=== PATIENT | female | born 1980 | race Caucasian/White ===

== ENCOUNTER 2019-09-25 09:20 | Emergency (ER) | payer OTHER ==
[~2019-09-25] VITALS: Ht 154.9 cm; Wt 63.6 kg
[~2019-09-25 09:20] MED LIST: CLEO300C2 PO; MOBI4TAB PO; NEUR300C PO; TRAM50TA2 PO; TYLE325T5 PO
[2019-09-25] MEDS ORDERED: OMEG1CAP4 PO (09:30)
[2019-09-25] MEDS ORDERED: LIDO5OIN19 TOP (09:30)
[2019-09-25] MEDS ORDERED: ONDANSETRON 4MG/2ML VIAL (J2405) IV ONE (10:00)
[2019-09-25] MEDS ORDERED: NS 1,000 ML IV ONE (10:00)
[2019-09-25] MEDS ORDERED: MORPHINE 2 MG/ML 1ML VIAL (J2270) IV ONE (10:00)
[2019-09-25 10:42] LABS: APPEARANCE, URINE CLEAR (CLEAR); BACTERIA, URINE AUTO NEGATIVE (NEGATIVE); BILIRUBIN, URINE AUTO NEGATIVE (NEGATIVE); BLOOD, URINE BLOOD NEGATIVE (NEGATIVE); COLOR, URINE YELLOW (YELLOW); GLUCOSE, URINE (UA) AUTO NEGATIVE (NEGATIVE); KETONE, URINE AUTO NEGATIVE (NEGATIVE); LEUKOCYTE ESTERASE, URINE AUTO NEGATIVE (NEGATIVE); MUCUS, URINE SMALL (NEGATIVE); NITRITE, URINE AUTO NEGATIVE (NEGATIVE); PROTEIN, URINE AUTO NEGATIVE (NEGATIVE); RBC, URINE AUTO 8 /HPF (0-3); SPECIFIC GRAVITY URINE AUTO 1.016 (1.002-1.035); SQUAMOUS EPITHELIAL CELL UR AU 4 /HPF (0-6); UROBILINOGEN, URINE AUTO 0.2 mg/dL (0.0-2.0); WBC, URINE AUTO 1 /HPF (0-3)
[2019-09-25 10:46] LABS: BASO # 0.1 10^3/uL (0.0-0.2); BASO % 0.4 % (0.0-1.0); EOS % 0.1 % (0.0-3.0); HEMATOCRIT 42.9 % (36.0-47.0); HEMOGLOBIN 13.9 g/dl (12.0-15.5); LYMPH # 2.5 10^3/uL (1.5-5.0); MEAN CORPUSCULAR HGB CONC 32.4 g/dl (32.0-36.5); MEAN CORPUSCULAR VOLUME 92.7 fl (80.0-96.0); MONO # 0.6 10^3/uL (0.0-0.8); MONO % 4.5 % (0.0-5.0); NEUTROPHILS # 9.9 10^3/uL (1.5-8.5); NEUTROPHILS % 75.6 % (36.0-66.0); PLATELET COUNT, AUTOMATED 279 10^3/uL (150-450); RED BLOOD COUNT 4.63 10^6/uL (4.00-5.40); WHITE BLOOD COUNT 13.1 10^3/uL (4.0-10.0)
[2019-09-25 11:00] LABS: HCG, SERUM QUALITATIVE NEGATIVE (NEGATIVE)
[2019-09-25 11:04] LABS: ALBUMIN 3.9 GM/DL (3.2-5.2); ALT/SGPT 38 U/L (12-78); BILIRUBIN,DIRECT 0.2 MG/DL (0.0-0.2); BILIRUBIN,TOTAL 0.4 MG/DL (0.2-1.0); BLOOD UREA NITROGEN 13 MG/DL (7-18); CARBON DIOXIDE LEVEL 27 MEQ/L (21-32); CHLORIDE LEVEL 102 MEQ/L (98-107); CREATININE FOR GFR 0.64 MG/DL (0.55-1.30); GLOMERULAR FILTRATION RATE > 60.0 (>60); GLUCOSE, FASTING 111 MG/DL (70-100); LIPASE 75 U/L (73-393); POTASSIUM SERUM 3.9 MEQ/L (3.5-5.1); SODIUM LEVEL 136 MEQ/L (136-145); TOTAL PROTEIN 7.4 GM/DL (6.4-8.2)
[2019-09-25 11:05] LABS: INFLUENZA A AMPLIFICATION NEGATIVE (NEGATIVE); INFLUENZA B AMPLIFICATION NEGATIVE (NEGATIVE)
[2019-09-25] MEDS ORDERED: ISOVUE-370 76% 100ML VIAL (Q9967) As Ordered ONE (11:12)
--- NOTE | 2019-09-25 12:15 | REP ---
CT ABDOMEN AND PELVIS WITH IV CONTRAST: TECHNIQUE: Axial contrast enhanced images from the lung bases to the pubic symphysis using 100 mL Isovue 370 intravenous contrast material with multiplanar reformations. Visualized lung bases are clear. There is a cyst in the anterior lobe of the liver measuring about 1.2 cm in diameter. Spleen, adrenals, pancreas and kidneys are unremarkable. There is no hydronephrosis. There is no abdominal aortic aneurysm. There is no adenopathy. There is no free air or free fluid. There is no bowel thickening. The appendix is normal. Urinary bladder is mildly distended and grossly unremarkable. There appears to be an enhancing fibroid of the uterus in the region of the fundus 1.7 cm in diameter. There is a right ovarian mass containing a large amount of fat and a small calcification along the wall consistent with a dermoid, maximum diameter 5.6 cm. There appears to be a cystic structure of the left ovary approximately 4.6 cm in diameter. IMPRESSION: The appendix is normal. No free air or free fluid. 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 Left ovarian cyst 4.6 cm in diameter. Electronically Signed by Fredrick No MD 09/29/2019 03:29 P
--- NOTE | 2019-09-25 15:05 | REP ---
PELVIC ULTRASOUND: Real-time sonographic evaluation of the pelvis performed utilizing transabdominal and endovaginal technique. Bladder measures 8.1 x 8.6 x 4.9 cm. Uterus measures 9.7 x 4.5 x 4.5 cm. Endometrial thickness is 7 mm. Uterine fibroids are visualized, the largest measures 2.3 cm in diameter in the region of the fundus. Right ovary measures 6.1 x 4.4 x 5.2 cm and contains a heterogeneous cystic mass containing echogenic fat. This is consistent with a dermoid cyst. It measures 4.9 x 5.1 x 3.3 cm. Simple cyst left ovary measures 4.2 x 4.0 x 3.2 cm. There is no torsion of either ovary with duplex Doppler evaluation. There is trace free fluid. IMPRESSION: Fibroid uterus. Right ovarian dermoid 5.1 cm in maximum diameter. Simple cyst left ovary 4.2 cm in maximum diameter. Trace free fluid. No torsion. Electronically Signed by Fredrick No MD 09/29/2019 04:04 P
[2019-09-25] MEDS ORDERED: ONDA4TAB6 PO (15:35)
[2019-09-25 15:45] VITALS: BP 123/87
== END 2019-09-25 15:49 | disposition home or self-care (01) ==
LOC: M ED 09:20
DX: N83.202 Unspecified ovarian cyst, left side (principal); N83.201 Unspecified ovarian cyst, right side; G89.29 Other chronic pain; M54.9 Dorsalgia, unspecified; F17.200 Nicotine dependence, unspecified, uncomplicated; Z79.899 Other long term (current) drug therapy; Z88.2 Allergy status to sulfonamides; Z91.011 Allergy to milk products
CPT/HCPCS: 74177; 76830; 76856; 80048; 80076; 81001; 83690; 84703; 85025; 87502; 93976; 96361; 96374; 99284; J2270; J2405; Q9967

== ENCOUNTER → 2019-12-12 | Outpatient (CLI) | payer OTHER ==
[~2019-12-12] MED LIST changes: +GNP650TA8 PO; +LIDO5OIN19 TOP; +OMEG1CAP4 PO; +ONDA4TAB6 PO; +ORTH1TAB8 PO; +ZANA2CAP PO
== END ==
LOC: M LABSMTC 08:01
PROVIDERS: ATTEND Anesthesiology
DX: Z01.818 Encounter for other preprocedural examination (principal); Z11.59 Encounter for screening for other viral diseases

== ENCOUNTER 2019-12-15 07:50 | Day surgery (SDC) | payer OTHER ==
[~2019-12-15] VITALS: Ht 154.9 cm; Wt 70.3 kg
[~2019-12-15 07:50] MED LIST changes: +ACETAMINOPHEN 650 MG SUPP PR ONE; +LR 1,000 ML IV ONE
[2019-12-15] MEDS ORDERED: propofoL 200 MG/20 ML VIAL As Ordered ONE (08:18)
[2019-12-15] MEDS ORDERED: ROCURONIUM BROMIDE 50 MG/5 ML VIAL As Ordered ONE (08:18)
[2019-12-15] MEDS ORDERED: LIDOCAINE 2% 100MG/5ML SDV (FOR ANES.) As Ordered ONE (08:18)
[2019-12-15] MEDS ORDERED: dexameTHASONE 4 MG/ML 1ML VIAL (J1100 PER 1MG) As Ordered ONE (08:18)
[2019-12-15] MEDS ORDERED: ONDANSETRON 4MG/2ML VIAL As Ordered ONE (08:18)
[2019-12-15] MEDS ORDERED: fentaNYL 250 MCG/5 ML INJECTION (J3010) As Ordered ONE (08:21)
[2019-12-15] MEDS ORDERED: MIDAZOLAM INJ 2MG/2ML VIAL (J2250 PER 1MG) As Ordered ONE (08:22)
[2019-12-15 08:25] LABS: HEMATOCRIT 41.5 % (36.0-47.0); HEMOGLOBIN 13.5 g/dl (12.0-15.5); MEAN CORPUSCULAR HEMOGLOBIN 29.9 pg (27.0-33.0); MEAN CORPUSCULAR HGB CONC 32.5 g/dl (32.0-36.5); MEAN CORPUSCULAR VOLUME 91.8 fl (80.0-96.0); PLATELET COUNT, AUTOMATED 272 10^3/uL (150-450); RED BLOOD COUNT 4.52 10^6/uL (4.00-5.40); WHITE BLOOD COUNT 10.2 10^3/uL (4.0-10.0)
[2019-12-15 08:51] LABS: BLOOD UREA NITROGEN 15 MG/DL (7-18); CALCIUM LEVEL 9.6 MG/DL (8.5-10.1); CARBON DIOXIDE LEVEL 30 MEQ/L (21-32); CHLORIDE LEVEL 103 MEQ/L (98-107); CREATININE FOR GFR 0.78 MG/DL (0.55-1.30); GLOMERULAR FILTRATION RATE > 60.0 (>58); GLUCOSE, FASTING 100 MG/DL (70-100); HCG, SERUM QUANTITATIVE < 1.0 MIU/ML; POTASSIUM SERUM 4.9 MEQ/L (3.5-5.1); SODIUM LEVEL 139 MEQ/L (136-145)
[2019-12-15] MEDS ORDERED: ACETAMINOPHEN 650 MG SUPP As Ordered ONE (10:24)
[2019-12-15] MEDS ORDERED: METHYLENE BLUE 0.5% (5MG/ML) 10 ML AMP (PROVAYBLUE)(Q9968 PER 1MG) As Ordered ONE (10:24)
[2019-12-15] MEDS ORDERED: BUPIVACAINE HCL 0.5% 10ML VIAL As Ordered ONE (10:24)
[2019-12-15] MEDS ORDERED: ACETAMINOPHEN 1000MG 100ML IV BTL (OFIRMEV) (J0131 PER 10MG) As Ordered ONE (11:41)
[2019-12-15] MEDS ORDERED: SUGAMMADEX SODIUM 500 MG/5 ML VIAL (BRIDION) As Ordered ONE (11:43)
[2019-12-15] MEDS ORDERED: KETOROLAC 60 MG/2 ML VIAL As Ordered ONE (11:43)
[2019-12-15] MEDS: oxyCODONE 5MG TAB PO PRN ×2 (12:08→12:38)
[2019-12-15] MEDS ORDERED: oxyCODONE 5MG TAB As Ordered ONE (12:08)
[2019-12-15] MEDS ORDERED: HYDROMORPHONE HCL 0.5 MG/ 0.5 ML SYRINGE (J1170 PER 1) IV PRN (12:15)
[2019-12-15] MEDS ORDERED: ONDANSETRON 4MG/2ML VIAL IV PRN (12:15)
[2019-12-15] MEDS ORDERED: LR 1,000 ML IV SCH (12:15)
[2019-12-15] MEDS: fentaNYL 100 MCG/2 ML INJECTION (J3010) IV PRN ×2 (12:32→12:37)
[2019-12-15 14:05] VITALS: BP 155/83
[2019-12-15] MEDS ORDERED: KETOROLAC 30 MG/ML 1ML VIAL IV SCH (18:00)
== END 2019-12-15 14:15 | disposition home or self-care (01) ==
LOC: M SDC 07:50
PROVIDERS: ATTEND Obstetrics & Gynecology
DX: Z30.2 Encounter for sterilization (principal); D27.0 Benign neoplasm of right ovary; D64.9 Anemia, unspecified; Z79.899 Other long term (current) drug therapy; Z88.2 Allergy status to sulfonamides; Z91.011 Allergy to milk products; F17.218 Nicotine dependence, cigarettes, with other nicotine-induced disorders
CPT/HCPCS: 36415; 58661; 80048; 84702; 85027; 88302; 88305; J0131; J1100; J1885; J2250; J2405; J3010

== ENCOUNTER → 2020-05-18 | Outpatient (CLI) | payer OTHER ==
[~2020-05-18] MED LIST changes: -ACETAMINOPHEN 650 MG SUPP PR ONE; -LR 1,000 ML IV ONE
== END ==
LOC: M LABSMTC 14:23
PROVIDERS: ATTEND Family Medicine
DX: Z20.828 Contact with and (suspected) exposure to other viral communicable diseases (principal)
CPT/HCPCS: C9803; U0003